=== PATIENT | female | born 1955 | race Caucasian/White ===

== ENCOUNTER 2021-10-29 15:32 | Inpatient (IN) | payer MEDICARE, OTHER ==
[~2021-10-29] VITALS: Ht 160 cm; Wt 41.7 kg
--- NOTE | 2021-10-29 15:34 | NUR ---
[facility] "NOT EATING SINCE YESTERDAY", IV HYDRATION GIVEN, LOST 15LBS PAST 3MOS, FOR G-TUBE INSERTION. PT ATTACHED TO MONITOR, NO RESP DISTRESS NOTED, PT ON 2L NC. WARM BLNKATE PROVIDED FOR COMFORT. AWAITING MD EL.
--- NOTE | 2021-10-29 15:41 | NUR ---
AJ Encarnacion FA 18. LABS COLLECTED AND SENT.
--- NOTE | 2021-10-29 15:51 | NUR ---
COVID TEST COLLECTED AND SENT
[2021-10-29] MEDS ORDERED: ACET325T53 PO (16:26)
[2021-10-29] MEDS ORDERED: DIVA500T2 PO (16:26)
[2021-10-29] MEDS ORDERED: MIRT-121 PO (16:26)
[2021-10-29] MEDS ORDERED: MAGN400O6 PO (16:26)
[2021-10-29] MEDS ORDERED: QUET25TA PO (16:26)
[2021-10-29] MEDS ORDERED: TEMA15CA PO (16:26)
[2021-10-29] MEDS ORDERED: MULT-439 PO (16:26)
[2021-10-29] MEDS ORDERED: QUET50TA PO (16:26)
[2021-10-29] MEDS ORDERED: IV NS 0.9% 1,000 ML BAG IV ONE (16:30)
[2021-10-29 16:56] LABS: BASOPHILS % (AUTO) 0.2 % (0.0-2.0); EOSINOPHILS % (AUTO) 0.6 % (0.0-6.0); HEMATOCRIT 40 % (33-45); HEMOGLOBIN 13.3 g/dL (11.5-14.8); LYMPHOCYTES % (AUTO) 9.4 % (20.0-44.0); MEAN CORPUSCULAR HGB CONC 33 g/dl (31.0-36.0); MEAN CORPUSCULAR VOLUME 94 fL (82-100); MONOCYTES # (AUTO) 1.2 K/uL (0.1-1.30); MONOCYTES % (AUTO) 11.7 % (2.0-12.0); NEUTROPHILS # (AUTO) 8.1 K/uL (1.8-8.9); NEUTROPHILS % (AUTO) 78.1 % (43.0-81.0); PLATELET COUNT (AUTO) 246 K/uL (150-450); RED BLOOD CELL COUNT(AUTO) 4.26 MIL/uL (4.0-5.2); WHITE BLOOD COUNT (AUTO) 10.4 K/uL (4.3-11.0)
[2021-10-29] MEDS ORDERED: ACETAMINOPHEN 325 MG TABLET PO PRN (17:00)
[2021-10-29] MEDS ORDERED: MAGNESIUM HYDROXIDE 30 ML UDC PO PRN (17:00)
[2021-10-29] MEDS ORDERED: ZOLPIDEM TARTRATE 5 MG TABLET PO PRN (17:00)
[2021-10-29] MEDS ORDERED: Z GUARD REMEDY 4 OZ OINT TP PRN (17:00)
[2021-10-29] MEDS ORDERED: ONDANSETRON HCL/PF 4 MG/2 ML VIAL IVP PRN (17:00)
[2021-10-29] MEDS ORDERED: MAG HYDROX/AL HYDROX/SIMETH 30 ML UDC PO PRN (17:00)
--- NOTE | 2021-10-29 17:10 | NUR ---
DAUGHTER: FER WELSH [phone] (POA) LIVES IN [place] NO RESUSCITATION, BUT AGREES WITH G-TUBE INSERTION. WILL BE GOING HERE ON Oct
[2021-10-29 17:24] LABS: ALANINE AMINOTRANSFERASE 33 U/L (12-78); ALBUMIN 2.7 g/dL (3.4-5.0); ALKALINE PHOSPHATASE 52 U/L (46-116); ASPARTATE AMINOTRANSFERASE 20 U/L (15-37); BILIRUBIN,DIRECT 0.2 mg/dL (0.0-0.2); BILIRUBIN,TOTAL 0.8 mg/dL (0.2-1.0); CALCIUM, SERUM 9.2 mg/dL (8.5-10.1); CARBON DIOXIDE 31 mmol/L (21-32); CHLORIDE 105 mmol/L (98-107); CREATININE 0.8 mg/dL (0.6-1.3); GLUCOSE 115 mg/dL (74-106); LIPASE 115 U/L (73-393); SODIUM SERUM 141 mmol/L (136-145); TOTAL PROTEIN, SERUM 7.1 g/dL (6.4-8.2); UREA NITROGEN, BLOOD 17 mg/dL (7-18)
--- NOTE | 2021-10-29 17:41 | NUR ---
[facility] CALLED JEWELRY COATER PAGED.
[2021-10-29] MEDS: QUETIAPINE FUMARATE 25 MG TABLET PO SCH ×2 (20:30→22:00)
[2021-10-29] MEDS ORDERED: QUETIAPINE FUMARATE 25 MG TABLET ONE ×2 (20:37→22:15)
[2021-10-29] MEDS: MIRTAZAPINE 15 MG TABLET PO SCH (22:00)
[2021-10-29] MEDS: TEMAZEPAM 15 MG CAPSULE PO SCH (22:00)
[2021-10-29] MEDS: IV D5/0.45 NACL 1,000 ML IV PRN (22:02)
[2021-10-29] MEDS ORDERED: TEMAZEPAM 15 MG CAPSULE ONE (22:15)
[2021-10-29] MEDS ORDERED: MIRTAZAPINE 15 MG TABLET ONE (22:16)
--- NOTE | 2021-10-30 00:15 | NUR ---
PT GOING TO 310-2
--- NOTE | 2021-10-30 00:54 | NUR ---
REPORT GIVEN TO JESSIE URBINA
[2021-10-30 01:05] VITALS: BP 106/67
[2021-10-30] MEDS: IV D5/0.45 NACL 1,000 ML IV PRN ×2 (01:20→15:23)
--- NOTE | 2021-10-30 01:25 | NUR ---
PATIENT TRANSFERRED, NO ACUTE DISTRESS NOTED,
--- NOTE | 2021-10-30 01:30 | NUR ---
RN ADMITTING NOTE PATIENT BEING ADMITTED FROM ER FOR FTT, PATIENT IS CONFUSED, RESPONDS TO VERBAL STIMULI, BUT NOT ORIENTED TO PERSON, PLACE, TIME, AND SITUATION. UNABLE TO STATE NAME AND BIRTHDAY. ORIENTED PATIENT TO PRESENT BUT PATIENT REMAINS CONFUSED. PATIENT RECEIVED WITH 2 LPM VIA NC, TOLERATING WELL, NO SOB NOTED, BREATHING EVEN AND UNLABORED. PATIENT HAS A RFA 22 G SALINE LOCKED AND A LFA 18 G PATENT AND INTACT, BOTH FLUSHING WELL. PATIENT'S SKIN ISSUES DOCUMENTED. PATIENT DID NOT HAVE ANY BELONGINGS. PATIENT NOT IN ANY PAIN VIA FLACC ASSESSMENT. SAFETY MEASURES IN PLACE: BED LOCKED AND IN LOWEST POSITION, CALL LIGHT WITHIN REACH, SIDE RAILS UP. WILL MONITOR PATIENT CLOSELY.
--- NOTE | 2021-10-30 02:13 | NUR ---
RN NOTE NOTIFIED MD SHANIKA TREVIÑO ABOUT PATIENT'S POLST THAT STATES DNR/DNI. MD ORDERED CODE STATUS DNR/DNI. ORDER READ BACK, CARRIED OUT.
[2021-10-30 06:12] LABS: BASOPHILS % (AUTO) 0.1 % (0.0-2.0); EOSINOPHILS % (AUTO) 0.7 % (0.0-6.0); HEMATOCRIT 36 % (33-45); HEMOGLOBIN 12.1 g/dL (11.5-14.8); LYMPHOCYTES # (AUTO) 0.8 K/uL (0.8-4.8); LYMPHOCYTES % (AUTO) 7.9 % (20.0-44.0); MEAN CORPUSCULAR HGB CONC 34 g/dl (31.0-36.0); MEAN CORPUSCULAR VOLUME 93 fL (82-100); MONOCYTES % (AUTO) 10.2 % (2.0-12.0); NEUTROPHILS # (AUTO) 8.2 K/uL (1.8-8.9); NEUTROPHILS % (AUTO) 81.1 % (43.0-81.0); PLATELET COUNT (AUTO) 237 K/uL (150-450); RED BLOOD CELL COUNT(AUTO) 3.84 MIL/uL (4.0-5.2); WHITE BLOOD COUNT (AUTO) 10.1 K/uL (4.3-11.0)
[2021-10-30 06:40] LABS: CALCIUM, SERUM 8.7 mg/dL (8.5-10.1); CREATININE 0.6 mg/dL (0.6-1.3); MAGNESIUM 2.1 mg/dL (1.8-2.4); PHOSPHORUS 3.2 mg/dL (2.5-4.9); POTASSIUM 3.5 mmol/L (3.5-5.1)
--- NOTE | 2021-10-30 06:53 | NUR ---
RN CLOSING NOTE PATIENT IN BED, EYES CLOSED, ROUSED WITH VERBAL AND TOUCH STIMULI. PATIENT STILL REMAINS TO BE CONFUSED. NOT IN ANY APPARENT DISTRESS. PATIENT'S LAC AND RAC IV ACCESS STILL PATENT AND INTACT. FLUSHING WELL. MRSA SWAB COLLECTED ON THE RIGHT NARE, SPECIMEN PLACED IN THE FRIDGE. SAFETY MEASURES IMPLEMENTED. ALL NEEDS MET AND ATTENDED. ALL ORDERS CARRIED OUT. WILL ENDORSE TO DAY SHIFT NURSE FOR KELSY. Addendum: 10/30/21 at 0659 by PERLA HUDDLESTON RN WRONG PATIENT
--- NOTE | 2021-10-30 07:01 | NUR ---
RN CLOSING NOTE PATIENT IN BED, EYES CLOSED. PATIENT IS ON 2LPM VIA NC, TOLERATING WELL. BREATHING EVEN AND UNLABORED. PATIENT REMAINS TO BE CONFUSED. PATIENT'S LFA 18 G PATENT AND INTACT, ONGOING D5 1/2 NS AT 75 ML/HR. RFA 22 G, PATENT AND INTACT. BOTH WRAPPED IN BERTHA WRAP TO PREVENT PATIENT FROM PULLING ON IV ACCESS. NO PAIN VIA FLACC. NO APPARENT DISTRESS. SAFETY MEASURES IMPLEMENTED. ALL NEEDS MET AND ATTENDED. ALL ORDERS CARRIED OUT. WILL ENDORSE TO DAY SHIFT NURSE FOR KELSY.
--- NOTE | 2021-10-30 07:27 | NUR ---
MS RN OPENING NOTE RECEIVED PATIENT ASLEEP IN BED, EASILY AROUSED. PT A/O X0, REORIENTED PT NEEDED. ON O2 AT 2L/MIN VIA NASAL CANNULA, TOLERATING WELL. NO SOB NOTED. NOT IN ANY SIGN OF RESPIRATORY DISTRESS. IV ACCESS IN LFA G #18, INTACT AND PATENT WITH D5 1/2 NS INFUSING AT 75ML/HR. RFA G#22 SL, INTACT AND PATENT. SAFETY MEASURES IN PLACE: BED AT LOWEST AND LOCKED POSITION, SIDE RAILS UP X3, BED ALARM ON, AND CALL LIGHT WITHIN REACH. WILL CONTINUE TO MONITOR PT.
[2021-10-30] MEDS: QUETIAPINE FUMARATE 25 MG TABLET PO SCH ×5 (08:28→21:43)
[2021-10-30] MEDS: DIVALPROEX SODIUM 250 MG TABLET.DR PO SCH ×4 (08:28→17:00)
--- NOTE | 2021-10-30 08:32 | NUR ---
RN NOTE PT REFUSED TO TAKE ALL HER MEDICATION SCHEDULED AT 0900. UPON ADMINISTRATION, SHE SPIT ALL THE MEDICATIONS OUT. EXPLAINED RISK AND BENEFITS X3, STILL STRONGLY REFUSED.
--- NOTE | 2021-10-30 13:36 | NUR ---
RN NOTE PT REFUSED TO TAKE ALL HER MEDICATION SCHEDULED AT 1300. EXPLAINED RISK AND BENEFITS X3, STILL STRONGLY REFUSED.
[2021-10-30 17:00] VITALS: BP 161/104
--- NOTE | 2021-10-30 17:05 | NUR ---
RN NOTE PT REFUSED TO TAKE ALL HER MEDICATION SCHEDULED AT 1700. EXPLAINED RISK AND BENEFITS X3, STILL STRONGLY REFUSED.
--- NOTE | 2021-10-30 18:53 | NUR ---
MS RN CLOSING NOTE PATIENT ASLEEP IN BED, EASILY AROUSED. PT A/O X0, REORIENTED PT NEEDED. ON O2 AT 2L/MIN VIA NASAL CANNULA, TOLERATING WELL. NO SOB NOTED. NOT IN ANY SIGN OF RESPIRATORY DISTRESS. IV ACCESS IN LFA G #18, INTACT AND PATENT WITH D5 1/2 NS INFUSING AT 75ML/HR. RFA G#22 SL, INTACT AND PATENT. ALL NEEDS ATTENDED. KEPT CLEAN AND COMFORTABLE. TURNED AND REPOSITIONED Q2HRS AND NEEDED. SAFETY MEASURES IN PLACE: BED AT LOWEST AND LOCKED POSITION, SIDE RAILS UP X3, BED ALARM ON, AND CALL LIGHT WITHIN REACH. WILL ENDORSE TO FOUNDRY MELT SUPERVISOR NURSE FOR KELSY.
--- NOTE | 2021-10-30 19:25 | NUR ---
RN OPENING NOTE PATIENT IN BED, EYES CLOSED. PATIENT IS ON 2LPM VIA NC, TOLERATING WELL. BREATHING EVEN AND UNLABORED. PATIENT CONFUSED. PATIENT'S LFA 18 G PATENT AND INTACT, ONGOING D5 1/2 NS AT 75 ML/HR. RFA 22 G, PATENT AND INTACT. BOTH WRAPPED IN BERTHA WRAP TO PREVENT PATIENT FROM PULLING ON IV ACCESS. NO PAIN VIA FLACC. NO APPARENT DISTRESS. SAFETY MEASURES IMPLEMENTED: BED LOCKED AND IN LOWEST POSITION, CALL LIGHT WITHIN REACH, SIDE RAILS UP. WILL MONITOR PATIENT CLOSELY.
[2021-10-30 20:00] VITALS: BP 155/90
[2021-10-30] MEDS: TEMAZEPAM 15 MG CAPSULE PO SCH (21:43)
[2021-10-30] MEDS: MIRTAZAPINE 15 MG TABLET PO SCH (21:43)
--- NOTE | 2021-10-30 21:45 | NUR ---
RN NOTE PATIENT REFUSED TO TAKE MEDICATIONS, ENCOURAGED PATIENT BUT SHE SAYS THAT IT PEREZ HER. AND SAYING OTHER INCOHERENT THINGS.
[2021-10-31] MEDS: IV D5/0.45 NACL 1,000 ML IV PRN ×2 (03:59→16:10)
[2021-10-31 04:00] VITALS: BP 158/96
--- NOTE | 2021-10-31 06:45 | NUR ---
RN CLOSING NOTE PATIENT IN BED, EYES CLOSED. PATIENT IS ON 2LPM VIA NC, TOLERATING WELL. BREATHING EVEN AND UNLABORED. PATIENT CONFUSED. PATIENT'S LFA 18 G PATENT AND INTACT, ON GOING D5 1/2 NS AT 75 ML/HR. RFA 22 G, PATENT AND INTACT. BOTH WRAPPED IN BERTHA WRAP TO PREVENT PATIENT FROM PULLING ON IV ACCESS. NO PAIN VIA FLACC. NO APPARENT DISTRESS. SAFETY MEASURES IMPLEMENTED: BED LOCKED AND IN LOWEST POSITION, CALL LIGHT WITHIN REACH, SIDE RAILS UP. ALL NEEDS MET AND ATTENDED. ALL ORDERS CARRIED OUT. WILL ENDORSE TO DAY SHIFT NURSE FOR KELSY.
--- NOTE | 2021-10-31 07:30 | NUR ---
MS RN OPENING NOTES RECEIVED PATIENT ON BED, AWAKE AND A/O X0-1, VERY CONFUSED. ON O2 AT 2LPM VIA NASAL CANNULA TOLERATING WELL. NO SOB NOTED. NOT IN DISTRESS. ON NPO DUE TO CONFUSION, INABILITY TO SWALLOW. AWAITING FOR GI CONSULT FOR PEG TUBE PLACEMENT. WITH IV ACCESS AT RIGHT FOREARM G22 SALINE LOCKED, PATENT AND INTACT AND AT LEFT FOREARM G18 WITH D5 1/2NS AT 75ML/HR INFUSING WELL. SAFETY MEASURES IN PLACED. CALL LIGHT WITHIN REACH. BED ON LOWEST LOCKED POSITION, SIDE RAILS UP X2. WILL CONTINUE TO MONITOR.
[2021-10-31 08:00] VITALS: BP 158/96
--- NOTE | 2021-10-31 08:47 | NUR ---
WOUND CARE CONSULT: PT PRESENTS WITH SACRAL DEEP TISSUE INJURY WHICH IS INTACT AND LEFT POSTERIOR ANKLE DRY SCAB, PRESENT ON ADMISSION. PT IS INCONTINENT. RECOMMENDATIONS MADE FOR SKIN PROTECTION. DISCUSSED WITH NURSING STAFF. PT IS EXTREMELY THIN AND BONY. DIETARY CONSULT IN PLACE. IN AGREEMENT WITH PLAN OF CARE. Addendum: 10/31/21 at 0848 by CASH JOSHI WNDNU Amended: Links added.
[2021-10-31] MEDS: QUETIAPINE FUMARATE 25 MG TABLET PO SCH ×4 (09:00→21:03)
[2021-10-31] MEDS: DIVALPROEX SODIUM 250 MG TABLET.DR PO SCH ×3 (09:00→16:43)
[2021-10-31 16:00] VITALS: BP 158/96
--- NOTE | 2021-10-31 18:19 | NUR ---
MS RN CLOSING NOTES PATIENT ON BED, AWAKE AND A/O X0-1, VERY CONFUSED. ON O2 AT 2LPM VIA NASAL CANNULA TOLERATING WELL. NO SOB NOTED. NOT IN DISTRESS. ON NPO DUE TO CONFUSION, INABILITY TO SWALLOW. AWAITING FOR GI CONSULT FOR PEG TUBE PLACEMENT. WITH IV ACCESS AT RIGHT FOREARM G22 SALINE LOCKED, PATENT AND INTACT AND AT LEFT FOREARM G18 WITH D5 1/2NS AT 75ML/HR INFUSING WELL. DUE MEDS GIVEN. SAFETY MEASURES IN PLACED. CALL LIGHT WITHIN REACH. BED ON LOWEST LOCKED POSITION, SIDE RAILS UP X2. WILL ENDORSE TO NEXT SHIFT FOR KELSY.
--- NOTE | 2021-10-31 19:38 | NUR ---
MS RN OPENING NOTES PATIENT ON BED, AWAKE AND A/O X0-1, VERY CONFUSED. ON ROOM AIR TOLERATING WELL. NO SOB NOTED. NOT IN DISTRESS. ON NPO DUE TO CONFUSION, INABILITY TO SWALLOW. AWAITING FOR GI CONSULT FOR PEG TUBE PLACEMENT. WITH IV ACCESS AT RIGHT FOREARM G22 SALINE LOCKED, PATENT AND INTACT AND AT LEFT FOREARM G18 WITH D5 1/2NS AT 75ML/HR INFUSING WELL. SAFETY MEASURES IN PLACED. CALL LIGHT WITHIN REACH. BED ON LOWEST LOCKED POSITION, SIDE RAILS UP X2. HOB ELEVATED FOR SAFETY.
[2021-10-31 20:00] VITALS: BP 159/79
[2021-10-31] MEDS: TEMAZEPAM 15 MG CAPSULE PO SCH (21:02)
[2021-10-31] MEDS: MIRTAZAPINE 15 MG TABLET PO SCH (21:02)
[2021-11-01] VITALS (7 sets, daily range): BP systolic 133–157; BP diastolic 65–97
--- NOTE | 2021-11-01 06:47 | NUR ---
MS RN CLOSING NOTES PATIENT ON BED, AWAKE AND A/O X0-1, VERY CONFUSED. ON ROOM AIR TOLERATING WELL. NO SOB NOTED. NOT IN DISTRESS. ON NPO DUE TO CONFUSION, INABILITY TO SWALLOW. AWAITING FOR GI CONSULT FOR PEG TUBE PLACEMENT. WITH IV ACCESS AT RIGHT FOREARM G2O SALINE LOCKED, WITH D5 1/2NS AT 75ML/HR INFUSING WELL. SAFETY MEASURES IN PLACED. CALL LIGHT WITHIN REACH. BED ON LOWEST LOCKED POSITION, SIDE RAILS UP X2. HOB ELEVATED FOR SAFETY.
--- NOTE | 2021-11-01 07:30 | NUR ---
RN MS NOTES PT IN BED, ASLEEP, NO SIGN OF PAIN OR DISTRESS, RESPIRATIONS NORMAL, CALL LIGHT WITHIN REACH, IV FLUIDS INFUSING WELL, KEPT WARM AND COMFORTABLE IN BED.
[2021-11-01] MEDS: DIVALPROEX SODIUM 250 MG TABLET.DR PO SCH ×3 (08:16→16:39)
[2021-11-01] MEDS: QUETIAPINE FUMARATE 25 MG TABLET PO SCH ×4 (08:17→22:00)
[2021-11-01] MEDS: IV D5/0.45 NACL 1,000 ML IV PRN (13:08)
--- NOTE | 2021-11-01 18:08 | NUR ---
RN MS NOTES PT IN BED, AWAKE, ALERT TO SELF, WITH CONFUSION, NO SIGN OF PAIN OR DISTRESS, IV FLUIDS INFUSING WELL, CHECKLIST COMPLETED, VISITED BY FAMILY, VITAL SIGNS TAKEN, FOR PEG PLACEMENT AT 1900.
--- NOTE | 2021-11-01 19:10 | NUR ---
RN NOTES: RECEIVED LYING ON BED, A/O TO SELF ONLY, INCONTINENT B/B, FOR PEG TUBE PLACEMENT TODAY AT 1900, IV CANNULA ON RFA G#20 WITH D5%1/2 NS AT 75 ML/HR ONGOING.ORIENTED TO UNIT AND STAFF, NPO. -PER ENDORSEMENT ALL CONSENT SIGNED AND COMPLETED, PRE OP CHECK LIST ALL PREPARED, AWAITING ONLY FOR TRANSFER TO OR.
--- NOTE | 2021-11-01 19:45 | NUR ---
RN NOTES: -DAUGHTERLANDEN CAME AND TALK TO RN, EXPRESSING SHE WANTS TO SPEAK WITH BEVELING MACHINE OPERATOR OR PILE FABRIC KNITTER TOMORROW BEFORE SHE GO BACK TO [place], SHE DO NOT WANT HER MOTHER TO GO BACK ON THE SAME SNF BEFORE, SHE WANTS A NEW PLACEMENT. -SHE WILL BE HERE AT 1000AM TOMORROW.
--- NOTE | 2021-11-01 20:21 | NUR ---
RN NOTES:' AT 2019 TAKEN TO OR ACCOMPANIED BY 2 OR STAFF,WITH PATIENT CHART, CONSENT AND PREOP CHECKLIST COMPLETED. ON NPO.
[2021-11-01] MEDS ORDERED: MIDAZOLAM HCL 2 MG/2ML VIAL ONE (21:14)
[2021-11-01] MEDS ORDERED: ANESTHESIA TRAY IN PYXIS 1 EA TRAY MC ONE (21:46)
[2021-11-01] MEDS: MIRTAZAPINE 15 MG TABLET PO SCH (22:00)
[2021-11-01] MEDS: TEMAZEPAM 15 MG CAPSULE PO SCH (22:00)
--- NOTE | 2021-11-01 22:13 | NUR ---
RN NOTES: BACK FROMOR AT 2205 S/P PEG TUBE PLACEMENT, BY , PEG SITE INTACT, ACCOMPANIED BY RN/ADRIAN VEE, PER ENDORSEMENT SHE RECEIVED ZOFRAN IV,TO START TUBE FEEDING IN THE MORNING AND FOR DIETARY CONSULT FOR FEEDING AND FLUSHING ORDER.
--- NOTE | 2021-11-01 22:22 | NUR ---
RN NOTES: PATIENT JUST CAME BACK FROM OR,SHE LOOKS SEDATED, SLEEPY AND DROWSY, CHARGE NURSE NOTIFIED, DUE MEDS OF RESTORIL, REMERON AND SEROQUEL NOT GIVEN, S/P NEW PEG PLACEMENT TO START FEEDING IN THE MORNING.
--- NOTE | 2021-11-01 22:25 | NUR ---
RN NOTES: V/S UPON COMING BACK FROM OR BP-146/96 PR104 RR-20 T97.5 [id number]% WITH O2 AT 2L/MIN VIA NC, NON LABORED BREATHING.
--- NOTE | 2021-11-02 00:28 | NUR ---
RN NOTES: -MORNING CARE DONE, HER BRIEF IS WET, CLEAN AND CHANGE,NO BM, RN AND STRAND AND BINDER CONTROLLER EXPLAINED EVERY DETAIL OF CLEANING, SHE HAS PERIODS SHE IS RESISTANCE, AND TRYING TO HIT THE STAFF,BUT WHEN EVERYTHING IS EXPLAINED SHE IS CALMER AND NOT AGGRESSIVE. -NEEDS ANTICIPATED. --PEG TUBE INSERTION SITE IS CLEAN AND DRY, NO SIGN OF BLEEDING,NO REDNESS, NO SWELLING, MOLDOVAN G#20, NOTIFIED RN SHOTBLASTER WE NEED AN ABDOMINAL BINDER FOR THIS PATIENT.
--- NOTE | 2021-11-02 04:26 | NUR ---
RN NOTES: MORNING CARE RENDERED, SLIGHT SPONGING DONE, NO COMPLAINTS OF PAIN, REPOSITIONED, ABDUCTION PILLOW ON. Addendum: 11/02/21 at 1068 by BALJINDER LEPE RN ABOVE CHARTING: -WRONG ENTRY OF CHARTING, NOT FOR THIS PATIENT
--- NOTE | 2021-11-02 04:28 | NUR ---
RN NOTES: REPOSITIONED, COOPERATIVE, BRIEF CHANGE, NO SIGN OF AGGRESSIVE BEHAVIOR.
[2021-11-02 04:54] VITALS: BP 133/83
[2021-11-02] MEDS: IV D5/0.45 NACL 1,000 ML IV PRN (06:36)
--- NOTE | 2021-11-02 06:36 | NUR ---
RN NOTES: IVF CONSUMED, NEW BOTTLE OF D5%1/2 NS AT 75 ML/HR STARTED, ASLEEP, ASPIRATION PRECAUTION OBSERVED,NEEDS ANTICIPATED, TURNED AND REPOSITIONED, NO SIGN OF RESPIRATORY DISTRESS, ENDORSED FOR CONTINUITY OF CARE.
--- NOTE | 2021-11-02 07:30 | NUR ---
RN MS NOTES PT IN BED, AWAKE, ALERT TO SELF, NO SIGN OF PAIN OR DISTRESS, CALL LIGHT WITHIN REACH, NEW GT IN PLACE, KEPT WARM AND COMFORTABLE IN BED.
[2021-11-02 08:00] VITALS: BP 165/99
[2021-11-02] MEDS ORDERED: JEVITY 1.2 CAL 1,000 ML BOTTLE GT PRN ×2 (08:00→12:23)
[2021-11-02] MEDS ORDERED: LACT-209 GT (08:46)
[2021-11-02] MEDS: QUETIAPINE FUMARATE 25 MG TABLET PO SCH ×3 (08:55→16:49)
[2021-11-02] MEDS: DIVALPROEX SODIUM 250 MG TABLET.DR PO SCH ×3 (08:55→16:49)
[2021-11-02 12:00] VITALS: BP 107/61
--- NOTE | 2021-11-02 13:00 | NUR ---
RN MS NOTES PT IN BED, RESTING, NO SIGN OF PAIN OR DISTRESS, GT FEEDING STARTED ORDERED, TOLERATES WELL, ADVANCED FEEDING RATE TOLERATED, NO RESIDUALS NOTED, KEPT WARM AND COMFORTABLE.
[2021-11-02 16:00] VITALS: BP 151/91
--- NOTE | 2021-11-02 17:30 | NUR ---
RN MS NOTES PT IN BED, AWAKE, ALERT TO SELF, WITH CONFUSION, TOLERATING GT FEEDING WELL, DAUGHTER FER AT BEDSIDE, DISCHARGE ORDER GIVEN BY DR. CRUZ, DISCHARGE AND MEDICATION INSTRUCTIONS PROVIDED TO DAUGHTER, VERBALIZED UNDERSTANDING, SKIN ASSESSMENT AND PHOTOS TAKEN, REPORT GIVEN TO JOHN URBINA OF [facility], PICKED UP BY 2 AMBULANCE PERSONNEL, PT HAS NO BELONGINGS, LEFT VIA GUERNEY IN STABLE CONDITION.
== END 2021-11-02 17:30 | DRG 640 ==
LOC: ER 15:52 → TRANSITION 19:15 → TELE 10-30 00:18 → MED 10-30 01:45
PROVIDERS: ADMIT Internal Medicine; ATTEND Internal Medicine
PROC: 0DH63UZ Insertion of Feeding Device into Stomach, Percutaneous Approach (ICD-10-PCS; principal; 2021-11-01)
DX: E86.0 Dehydration (principal); E43 Unspecified severe protein-calorie malnutrition; G93.41 Metabolic encephalopathy; Z68.1 Body mass index [BMI] 19.9 or less, adult; F03.90 Unspecified dementia, unspecified severity, without behavioral disturbance, psychotic disturbance, mood disturbance, and anxiety; R62.7 Adult failure to thrive; G47.00 Insomnia, unspecified; F25.9 Schizoaffective disorder, unspecified; F31.9 Bipolar disorder, unspecified; F41.9 Anxiety disorder, unspecified; R13.10 Dysphagia, unspecified; Z79.899 Other long term (current) drug therapy; Z88.8 Allergy status to other drugs, medicaments and biological substances; Z20.822 Contact with and (suspected) exposure to COVID-19; R63.4 Abnormal weight loss; K29.70 Gastritis, unspecified, without bleeding; Z98.82 Breast implant status
CPT/HCPCS: 36415; 43246; 71045-TC; 80048-TC; 80076-TC; 83605-TC; 83690-TC; 83735-TC; 84100-TC; 84484-TC; 85025-TC; 85730-TC; 87081-TC; 94799-TC; C9803; G0378; J2250; J2405; J2704; J3490; J7030